=== PATIENT | female | born 1995 | race Caucasian/White ===

== ENCOUNTER 2017-09-22 09:16 | Inpatient (IN) | payer MEDICAID ==
[~2017-09-22] VITALS: Ht 157.5 cm; Wt 95.3 kg
[~2017-09-22 09:16] MED LIST: PREN1CAP PO
[2017-09-22] MEDS ORDERED: LACTATED RINGER'S 1000 ML INJ 1,000 ML IV PRN (09:56)
[2017-09-22] MEDS ORDERED: SODIUM CHLORID 0.9% 500 ML INJ 500 ML IV PRN (10:00)
[2017-09-22] MEDS ORDERED: OXYTOCIN 30 UNITS-500ML PREMIX 500 ML IV ONE (10:00)
[2017-09-22] MEDS ORDERED: ONDANSETRON ODT 4 MG TAB PO PRN (10:00)
[2017-09-22] MEDS ORDERED: CITRIC ACID-SODIUM CITRATE LIQ 30 ML UDC PO SCH (10:00)
[2017-09-22] MEDS ORDERED: MINERAL OIL 10 ML VIAL TOPICAL PRN (10:00)
[2017-09-22] MEDS ORDERED: LIDOCAINE HCL 1% 50 ML VIAL INFIL PRN (10:00)
[2017-09-22] MEDS ORDERED: LIDOCAINE HCL 1% 50 ML VIAL I-DERMAL PRN (10:00)
--- NOTE | 2017-09-22 10:02 | PD ---
HPI Chief Complaint SROM Date Seen: September 22, 2017 Travel History International Travel<30 Days: No Contact w/Intl Traveler<30Days: No Known Affected Area: No History of Present Illness HPI Patient is a pleasant 22-year-old at 39/2 weeks gestation who presents to OB triage due to leakage of fluid since 07:00 earlier this morning. The patient endorses feeling contractile pain becoming more frequent in nature. Endorses positive movements. She otherwise does not have complaints or concerns. She denies recent fevers or chills, dyspnea, urinary complaints. She states her has been uncomplicated. [facility] Para: 0 : 1 History Past Medical History Narrative Medical Irritable bowel syndrome Obstetric History Obstetric History Past Surgical History Surgical History: No Previous Surgery Family History Family History: Negative Social History Alcohol Use: No Tobacco Use: No Substance Abuse: No Allergies-Medications (Allergen,Severity, Reaction): Coded Allergies: No Known Allergies (Unverified Adverse Reaction, Unknown, 05/25/17) Home Meds Active Scripts Vit W/ Fe Polysacch C (Vitafol Ultra 29-0.6-0.4-200 mg) 29 Mg Iron-1 Mg -200 Mg Cap, 1 TAB PO DAILY, #30 BOTTLE 11 Refills Prov:Sheila Pineda 03/30/17 Vit W/ Fe Polysacch C (Vitafol Ultra 29-0.6-0.4-200 mg) 29 Mg Iron-1 Mg -200 Mg Cap Prov:Sheila Pineda 03/30/17 Review of Systems Except as stated in HPI: all other systems reviewed are Neg Physical Exam Narrative GENERAL: Well-nourished, well-developed patient. SKIN: Warm and dry. HEAD: Normocephalic and atraumatic. EYES: No scleral icterus. No injection or drainage. ENT: No nasal drainage noted. Mucous membranes pink. Airway patent. NECK: Supple, trachea midline. No JVD. CARDIOVASCULAR: Regular rate and rhythm without murmurs, gallops, or rubs. RESPIRATORY: Breath sounds equal bilaterally. No accessory muscle use. ABDOMEN/GI: Abdomen soft, non-tender, bowel sounds present, no rebound, no guarding Gravid to 39 weeks size GENITOURINARY: External Genitalia: intact and normal in appearance Cervix: Midposition Dilatation: 2-3cm Effacement: 70% Station: -1 Presentation: Vertex Membranes: ruptured Uterine Contractions: q2-3 minutes FHT's: Category: I Baseline: 130s Reactive: +accels Variability: moderate Decels: absent EXTREMITIES: No cyanosis or edema. BACK: Nontender without obvious deformity. No CVA tenderness. NEUROLOGICAL: Awake and alert. Motor and sensory grossly within normal limits. Normal speech. Data Data Vital Signs Reviewed: Yes Orders Orders Admit To Inpatient (09/22/17 ) Code Status (09/22/17 09:56) Vital Signs (Adult) .Per protocol (09/22/17 09:56) Activity Oob Ad Yuko (09/22/17 09:56) Heart (09/22/17 09:56) Amnioinfusion (09/22/17 09:56) Urinary Catheter Management .ONCE (09/22/17 09:56) Diet Liquid (09/22/17 Breakfast) Lactated Ringer's 1000 Ml Inj (Lr 1000 M (09/22/17 09:56) Lactated Ringer's 1000 Ml Inj (Lr 1000 M (09/22/17 09:56) Sodium Chlorid 0.9% 500 Ml Inj (Ns 500 M (09/22/17 10:00) Sodium Chlor 0.9% 1000 Ml Inj (Ns 1000 M (09/22/17 10:16) Lidocaine 1% Inj (50 Ml) (Xylocaine 1% I (09/22/17 10:00) Citric Acid-Sodium Citrate Liq (Bicitra (09/22/17 10:00) Ondansetron Inj (Zofran Inj) (09/22/17 10:00) Fentanyl Inj (Fentanyl Inj) (09/22/17 10:00) Fentanyl Inj (Fentanyl Inj) (09/22/17 10:00) Complete Blood Count With Diff (09/22/17 09:56) Hold Clot (09/22/17 09:56) Abo/Rh Blood Type (09/22/17 09:56) Urinalysis - C+S If Indicated (09/22/17 09:56) Ob/Psych Drug Screen, Urine (09/22/17 09:56) Resp Oxygen Non Rebreathe Mask (09/22/17 ) ^ Epidural / Intrathecal Infus (09/22/17 09:56) Oxytocin 30 Units-500ml Premix (Pitocin (09/22/17 10:00) Lidocaine 1% Inj (50 Ml) (Xylocaine 1% I (09/22/17 10:00) Light Mineral Oil (Muri-Lube Oil) (09/22/17 10:00) Inpatient Certification (09/22/17 ) [facility] Medical Record Reviewed: Yes Plan 22 year old at 39/2 weeks gestation being admitted to L&D s/p SROM. 1. IUP - Category I tracing - Cervix: 2-3/70/-1, vertex presentation - Contractions q2-3 minutes on tocometer - Amnisure positive - GBS negative - Patient considering epidural when appropriate - Continue expectant management wdw Donta Sanchez MD R2 September 22, 2017 10:02
[2017-09-22] MEDS ORDERED: SODIUM CHLOR 0.9% 1000 ML INJ 1,000 ML IV PRN (10:16)
[2017-09-22] MEDS ORDERED: MISOPROSTOL 100 MCG TAB PO SCH (11:00)
[2017-09-22] MEDS: LACTATED RINGER'S 1000 ML INJ 1,000 ML IV SCH ×3 (11:12→21:18)
[2017-09-22 11:22] LABS: AUTOMATED NEUTROPHIL # 10.7 TH/MM3 (1.8-7.7); BASOPHIL % 0.3 % (0.0-2.0); EOSINOPHIL # 0.1 TH/MM3 (0-0.4); EOSINOPHIL % 0.4 % (0.0-4.0); HEMOGLOBIN 12.1 GM/DL (11.6-15.3); LYMPH % 15.6 % (9.0-44.0); LYMPHOCYTE # 2.1 TH/MM3 (1.0-4.8); MEAN CELL VOLUME 80.3 FL (80.0-100.0); MEAN CORPUSCULAR HEMOGLOBIN 26.3 PG (27.0-34.0); MEAN CORPUSCULAR HGB CONC 32.7 % (32.0-36.0); MEAN PLATELET VOLUME 9.8 FL (7.0-11.0); MONO % 5.3 % (0.0-8.0); MONOCYTE # 0.7 TH/MM3 (0-0.9); NEUT % 78.4 % (16.0-70.0); PLATELET COUNT 166 TH/MM3 (150-450); RED CELL DISTRIBUTION WIDTH 14.9 % (11.6-17.2); WHITE BLOOD COUNT 13.6 TH/MM3 (4.0-11.0)
--- NOTE | 2017-09-22 15:38 | PD.LABORPN ---
Subjective Subjective Patient in bed comfortable. Discussed with patient placement of an IUPC as well as FSE. Patient expressed understanding and agreed to plan. No other complaints. Objective Objective Pelvic Exam: Cervix: Midposition Dilatation: 4 cm Effacement: 80% Station: -1 Presentation: vertex Membranes: ruptured Uterine Contractions: Irregular FHT's: Category: I Baseline: 130s Reactive: +accels Variability: Moderate Decels: None noted Assessment/Plan Assessment and Plan 22 year old at 39/2 weeks gestation admitted to L&D s/p SROM for IOL 1. IUP - Category I tracing - Cervix: 4/80/-1, vertex presentation - s/p placement of an IUPC and FSE - Irregular contractions on tocometer - Discontinue Cytotec - Will start Pitocin at 2-2-30 per protocol if cervix remains unchanged at next cervical check - Amnisure positive - GBS negative - Patient considering epidural when appropriate - Continue expectant management Donta Zendejas Dr., MD R2 September 22, 2017 15:37
[2017-09-22] MEDS ORDERED: OXYTOCIN 30 UNITS-500ML PREMIX 500 ML IV PRN (15:45)
[2017-09-22] MEDS ORDERED: fentaNYL 2MCG-BUPIV 0.125% INJ 150 ML EPIDURAL ONE (19:31)
[2017-09-22] MEDS ORDERED: ePHEDrine/NS 25 MG/5 ML SYRINGE ONE (19:31)
[2017-09-22] MEDS ORDERED: LIDOCAINE HCL 1.5% PF 20 ML AMP ONE (19:42)
[2017-09-22] MEDS ORDERED: NO SYSTEM NARCOTICS PRN (20:30)
[2017-09-22] MEDS ORDERED: ePHEDrine/NS 25 MG/5 ML SYRINGE IV PUSH PRN (20:30)
[2017-09-22] MEDS ORDERED: fentaNYL 2MCG-BUPIV 0.125% 100 ML EPIDURAL PRN (20:30)
[2017-09-22] MEDS ORDERED: DO NOT ADMINISTER ANTICOAGULANTS PRN (20:30)
[2017-09-22] MEDS ORDERED: DO NOT ADM ANY ANTICOAGULANT DRUGS PRN (20:45)
[2017-09-22 21:49] LABS: BILIRUBIN, URINE NEG (NEG); BLOOD, URINE NEG (NEG); GLUCOSE,URINE NEG (NEG); KETONE, URINE 150 mg/dL (NEG); MUCUS URINE FEW /lpf (OCC); NITRITE,URINE NEG (NEG); SQUAMOUS EPITHELIAL CELL URINE 3 /hpf (0-5); URINE COLOR YELLOW (YELLW/STRAW); URINE LEUKOCYTE ESTERASE NEG (NEG)
[2017-09-23] MEDS ORDERED: LIDOCAINE HCL 1% PF 30 ML VIAL ONE (04:19)
--- NOTE | 2017-09-23 06:34 | PD.OB.DELI ---
Weeks gestation: 39 Anesthesia: Epidural Episiotomy: Midline Vaginal Delivery: Normal Presentation: Occiput anterior Nuchal Cord: x2 Delayed cord clamping (45 sec): No : Male Delivery date: September 23, 2017 Delivery time: 06:05 One Minute : 2 Five Minute : 4 Placenta: Spontaneous delivery, Intact, Cord pH Laceration: Episiotomy, 2 deg Repair: Chromic running Estimated blood loss: 200 cc Additional Information Patient with prolonged rupture the membranes greater than 18 hours delivered vaginally over a second-degree episiotomy after pushing for approximately 2 hours. Heart rate tracing in the late first stage of labor showed nonrepetitive late decelerations and some large variable decelerations. The heart rate variability however was moderate during all of that time, when she entered the second stage began to push strip actually improved to having no decelerations and she had many excellent accelerations with contractions and once again moderate [id number] variability. She delivered spontaneously and the baby was very hypotonic "floppy" baby was transferred to the [facility] where respiratory therapy began resuscitation PPV and CPAP used. 2/4 , cord gas drawn shows a cord pH 6.87 with a CO2 of 100 which is greatly elevated and a base deficit of -14.2 which is somewhat elevated indicating a respiratory acidosis with a small metabolic acidosis component. The mother also spiked a temperature to 101.3 within an hour of delivery and antibiotics were started ampicillin gentamicin IV, so maternal chorio could be contributing to the baby' s status Kranthi Roth II, MD September 23, 2017 06:34
[2017-09-23] MEDS ORDERED: ALUMINUM/MAGNESIUM/SIMETH 30 ML CUP PO PRN (06:45)
[2017-09-23] MEDS ORDERED: ACETAMINOPHEN 325 MG TAB PO PRN (06:45)
[2017-09-23] MEDS ORDERED: DOCUSATE SODIUM 50 MG/SENNA 8.6 MG TAB PO PRN (06:45)
[2017-09-23] MEDS ORDERED: WITCH HAZEL 50%/GLYCERIN 12.5% 40 PAD JAR TOPICAL PRN (06:45)
[2017-09-23] MEDS ORDERED: OXYTOCIN 30 UNITS-500ML PREMIX 500 ML IV SCH (06:45)
[2017-09-23] MEDS ORDERED: SODIUM CHLORIDE 0.9% FLUSH 10 ML FLUSH IV FLUSH PRN (06:45)
[2017-09-23] MEDS ORDERED: BENZOCAINE 20% TOPICAL SPRAY 60 ML CAN TOPICAL PRN (06:45)
[2017-09-23] MEDS ORDERED: ZOLPIDEM TARTRATE 5 MG TAB PO PRN (06:45)
[2017-09-23] MEDS ORDERED: ONDANSETRON ODT 4 MG TAB PO PRN (06:45)
[2017-09-23] MEDS: GENTAMICIN INJ 80 MG in SODIUM CHLORIDE 0.9% INJ 100 ML IV SCH ×3 (08:04→23:55)
[2017-09-23] MEDS: LACTATED RINGER'S 1000 ML INJ 1,000 ML IV SCH ×3 (08:04→23:55)
[2017-09-23] MEDS: SODIUM CHLORIDE 0.9% FLUSH 10 ML FLUSH IV FLUSH SCH ×2 (09:00→21:03)
[2017-09-23] MEDS: IBUPROFEN 800 MG TAB PO PRN ×2 (12:27→21:01)
[2017-09-23] MEDS: AMPICILLIN INJ 2,000 MG in SODIUM CHLORIDE 0.9% INJ 100 ML IV SCH ×3 (12:27→23:55)
[2017-09-23] MEDS ORDERED: MEASLES, MUMPS, RUBELLA VACCINE 0.5 ML VIAL SQ ONE (16:00)
[2017-09-23] MEDS ORDERED: DIPHTH/TETANUS/ACEL PERTUSSIS (BOOSTER) 0.5 ML VIAL/PFS IM ONE (16:00)
[2017-09-23] MEDS: oxyCODONE/ACETAMINOPHEN 5 MG/325 MG TAB PO PRN ×2 (17:10→21:02)
[2017-09-23 20:33] VITALS: BP 131/76; PULSE 91; RESP 18; TEMP 97.8
[2017-09-24] MEDS: oxyCODONE/ACETAMINOPHEN 5 MG/325 MG TAB PO PRN ×3 (01:25→05:46)
[2017-09-24] MEDS: IBUPROFEN 800 MG TAB PO PRN (05:46)
[2017-09-24] MEDS: AMPICILLIN INJ 2,000 MG in SODIUM CHLORIDE 0.9% INJ 100 ML IV SCH (05:46)
[2017-09-24] MEDS: GENTAMICIN INJ 80 MG in SODIUM CHLORIDE 0.9% INJ 100 ML IV SCH (08:13)
[2017-09-24] MEDS: LACTATED RINGER'S 1000 ML INJ 1,000 ML IV SCH (08:13)
[2017-09-24] MEDS: SODIUM CHLORIDE 0.9% FLUSH 10 ML FLUSH IV FLUSH SCH (08:13)
--- NOTE | 2017-09-24 08:24 | HHI.OB ---
Subjective Post Day: 1 Remarks Patient seen and examined this morning. AFVSS overnight. day #1. Pain is well controlled. Decreased lochia. Denies dysuria. No breast tenderness. Appetite good. No nausea or vomiting. Positive flatus. No bowel movement yes. Ambulating well. Denies dysuria, calf pain, shortness of breath, or cough. She otherwise has no other complaints or concerns this morning. She would like to be discharged today in order to be with her baby who required transfer to [facility]. Objective Vitals/I&O Vital Signs Date Time Temp Pulse Resp B/P (MAP) Pulse Ox O2 Delivery O2 Flow Rate FiO2 09/23/17 20:33 97.8 91 18 131/76 (94) Objective Remarks GENERAL: Well-nourished, well-developed patient. CARDIOVASCULAR: Regular rate and rhythm without murmurs, gallops, or rubs. RESPIRATORY: Breath sounds equal bilaterally. No accessory muscle use. ABDOMEN/GI: Abdomen soft, non-tender. Fundus: Firm, non-tender at umbilicus. GENITOURINARY: Light to moderate bleeding. EXTREMITIES: No cyanosis or edema, non-tender, without signs of DVT. Medications and IVs Current Medications Medications (Trade) Dose Ordered Sig/Sara Route Start Time Stop Time Status Last Admin Lactated Ringer's 1,000 ml @ 125 mls/hr Q8H IV 09/22/17 09:56 09/23/17 08:04 Lactated Ringer's 1,000 ml @ 3,000 mls/hr Q20M PRN IV 09/22/17 09:56 Sodium Chloride 1,000 ml @ 100 mls/hr Q10H PRN IV 09/22/17 10:16 (Xylocaine 1% Inj (50 ml)) 0.1 ml UNSCH X1 PRN I-DERMAL 09/22/17 10:00 09/25/17 09:59 (Bicitra Liq) 30 ml PRODUCT [employer]ER PO 09/22/17 10:00 09/26/17 09:59 (Zofran Odt) 4 mg Q6H PRN PO 09/22/17 10:00 09/23/17 01:25 (fentaNYL INJ) 50 mcg Q1H PRN IV PUSH 09/22/17 10:00 (fentaNYL INJ) 100 mcg Q1H PRN IV PUSH 09/22/17 10:00 (Xylocaine 1% Inj (50 ml)) 10 ml UNSCH X1 PRN INFIL 09/22/17 10:00 09/24/17 09:59 (Muri-Lube Oil) 10 ml UNSCH PRN TOPICAL 09/22/17 10:00 Oxytocin 500 ml @ 0 mls/hr TITRATE PRN IV 09/22/17 15:45 09/22/17 17:02 Fentanyl/ Bupivacaine HCl 100 ml @ 0 mls/hr TITRATE PRN EPIDURAL 09/22/17 20:30 (NS Flush) 2 ml BID IV FLUSH 09/23/17 09:00 09/23/17 21:03 (NS Flush) 2 ml UNSCH PRN IV FLUSH 09/23/17 06:45 09/23/17 10:08 (Tylenol) 650 mg Q4H PRN PO 09/23/17 06:45 09/23/17 07:10 (Motrin) 800 mg Q8H PRN PO 09/23/17 06:45 09/24/17 05:46 (Percocet 5-325 Mg) 1 tab Q4H PRN PO 09/23/17 06:45 09/24/17 05:46 (Americaine 20% Top Spr) 1 spray Q4H PRN TOPICAL 09/23/17 06:45 09/23/17 10:18 (Tucks Pads) 1 applic QID PRN TOPICAL 09/23/17 06:45 09/23/17 10:18 (Erica-Colace) 2 tab Q12H PRN PO 09/23/17 06:45 09/23/17 21:01 (Ambien) 5 mg HS PRN PO 09/23/17 06:45 (Mag-Al Plus Susp Liq) 15 ml Q8H PRN PO 09/23/17 06:45 (Zofran Odt) 4 mg Q6H PRN PO 09/23/17 06:45 Ampicillin Sodium 2000 mg/Sodium Chloride 100 ml @ 400 mls/hr Q6HR IV 09/23/17 12:00 09/24/17 05:46 Gentamicin Sulfate 80 mg/ Sodium Chloride 102 ml @ 100 mls/hr Q8H IV 09/23/17 08:00 09/23/17 23:55 (Percocet 5-325 Mg) 2 tab Q4H PRN PO 09/23/17 17:15 09/23/17 21:02 Assessment/Plan Problem List: (1) 39 weeks gestation of ICD Codes: Z3A.39 - 39 weeks gestation of Plan: 22 year old PPD#1. 1. Care - AFVSS - Encouraged OOB, as tolerated - Motrin prn pain - Advised pelvic rest x 6 weeks - Contraception: We will discuss with OB doctor as outpatient - Will f/u with OB provider in [address] Wang Discharge Planning discharge today Sherif Hendrickson MD, R1 September 24, 2017 08:24
[2017-09-24] MEDS ORDERED: IBUP1TAB7 PO (10:22)
--- NOTE | 2017-09-24 10:23 | HHI.DCPOC ---
Discharge Care Plan Diagnosis: (1) 39 weeks gestation of Goals to Promote Your Health * To prevent worsening of your condition and complications * To maintain your health at the optimal level Directions to Meet Your Goals Take your medications as prescribed Follow your dietary instruction Follow activity as directed Keep your appointments as scheduled Take your immunizations and boosters as scheduled If your symptoms worsen call your PCP, if no PCP go to Urgent Care Center or Emergency Room Smoking is Dangerous to Your Health. Avoid second hand smoke Call the 24-hour hour crisis hotline for domestic abuse at Sherif Hendrickson MD, R1 September 24, 2017 10:23
== END 2017-09-24 10:50 | disposition home or self-care (01) | DRG 775 ==
LOC: HOBED 09:16 → H2EA 10:09 → H1EA 09-23 08:56
PROVIDERS: ADMIT Obstetrics & Gynecology; ATTEND Obstetrics & Gynecology
PROC: 00HU33Z Insertion of Infusion Device into Spinal Canal, Percutaneous Approach (ICD-10-PCS; 2017-09-22)
PROC: 3E0R3BZ Introduction of Anesthetic Agent into Spinal Canal, Percutaneous Approach (ICD-10-PCS; 2017-09-22)
PROC: 3E033VJ Introduction of Other Hormone into Peripheral Vein, Percutaneous Approach (ICD-10-PCS; 2017-09-22)
PROC: 10E0XZZ Delivery of Products of Conception, External Approach (ICD-10-PCS; principal; 2017-09-23)
PROC: 0W8NXZZ Division of Female Perineum, External Approach (ICD-10-PCS; 2017-09-23)
DX: O69.81X0 Labor and delivery complicated by cord around neck, without compression, not applicable or unspecified (principal); O76 Abnormality in fetal heart rate and rhythm complicating labor and delivery; K58.9 Irritable bowel syndrome, unspecified; O99.62 Diseases of the digestive system complicating childbirth; Z3A.39 39 weeks gestation of pregnancy; Z37.0 Single live birth; Z23 Encounter for immunization
CPT/HCPCS: 80307; 81001; 82805; 84112; 85025; 86900; 86901; 88307; G0481; J0290; J1580; J2590; J7120